=== PATIENT | female | born 1990 | race Caucasian/White ===

== ENCOUNTER → 2016-04-16 | Outpatient (CLI) | payer MEDICAID ==
--- NOTE | 2016-04-16 17:20 | US ---
Complete Obstetric Ultrasound dated April 16, 2016 Indication: Large for dates. The estimated gestational age by LMP is 25 weeks 5 days yielding an EDC of July 25, 2016. Comparison: Outside ultrasound by report only dated March 16, 2016 Findings: Number: 1 Presentation: Breech Placental location: Anterior without previa Cervix: Closed transabdominally at 4.3 cm. HR: 132 bpm MVP: 4.7 cm Biometry: Biparietal diameter: 6.5 cm 26 weeks 3 days Head circumference: 23.8 cm 26 weeks 0 days Abdominal circumference: 21.8 cm 26 weeks 2 days Femur length: 4.8 cm 26 weeks 1 day Humerus length: 4.4 cm 26 weeks 0 days HC/AC: 1.1 (1.04 - 1.22) FL/BPD: 74% FL/AC: 22% Average ultrasound age: 26 weeks 2 days EDC based on today's average ultrasound age: July 21, 2016 Estimated weight is 897 +/- 131 gms. The estimated weight is at the 58 % based on previou s dating. ANATOMY SURVEY: Supratentorial brain: Normal Posterior fossa: Normal Spine: Normal Nose and lips: Normal Facial profile: Normal Heart: Four chamber heart. Intact interventricular septum. Cardiac outflow tracts: Normal Stomach: Normal Umbilical cord insertion: Normal Kidneys: Normal, no pyelectasis Bladder: Normal Number of cord vessels: Three Upper extremities: Normal Lower extremities: Normal. No clubbing. Impression: 1. Living green . Size concordant with dates. The estimated gestational age by biometry is 26 weeks 2 days yielding an EDC of July 21, 2016. 2. Unremarkable anatomy. No anomalies detected.
== END ==
LOC: FIMAGING 09:57
PROVIDERS: ATTEND Family Medicine
DX: Z34.92 Encounter for supervision of normal pregnancy, unspecified, second trimester (principal); Z3A.26 26 weeks gestation of pregnancy